=== PATIENT | male | born 1935 | race Caucasian/White ===

== ENCOUNTER 2020-07-21 18:33 | Inpatient (IN) | payer MEDICARE, BC ==
[~2020-07-21] VITALS: Ht 182.9 cm; Wt 117.9 kg
[2020-07-21 19:00] VITALS: BP 116/88
[2020-07-21] MEDS ORDERED: Z GUARD REMEDY PASTE 57 GM TUBE TOP PRN (19:45)
[2020-07-21] MEDS ORDERED: POLY119P2 PO (20:20)
[2020-07-21] MEDS ORDERED: HYDR-4384 PO (20:20)
[2020-07-21] MEDS ORDERED: ONDA4TAB5 PO (20:20)
[2020-07-21] MEDS ORDERED: FAMO-132 PO (20:20)
[2020-07-21] MEDS ORDERED: MORP1SYR2 IVP (20:20)
[2020-07-21] MEDS ORDERED: PRED2.5T PO (20:20)
[2020-07-21] MEDS ORDERED: MELA5TAB PO (20:20)
[2020-07-21] MEDS ORDERED: TRAM50TA2 PO (20:20)
[2020-07-21] MEDS ORDERED: DOXY-226 PO (20:20)
[2020-07-21] MEDS ORDERED: LEVO137T2 PO (20:20)
[2020-07-21] MEDS ORDERED: METO25TA6 PO (20:20)
[2020-07-21 20:35] VITALS: BP 150/87
[2020-07-21] MEDS ORDERED: ONDANSETRON HCL 4 MG TABLET PO SCH (20:45)
[2020-07-21] MEDS ORDERED: POLYETHYLENE GLYCOL 3350 238 GM POWDER PO PRN (20:45)
[2020-07-21] MEDS ORDERED: TRAMADOL HCL 50 MG TABLET PO SCH (20:45)
[2020-07-21] MEDS ORDERED: HYDROCODONE/APAP 5-325MG TABLET PO SCH (20:45)
[2020-07-21] MEDS: FAMOTIDINE 20 MG TABLET PO SCH (22:11)
[2020-07-21] MEDS ORDERED: TRAMADOL HCL 50 MG TABLET PO PRN (22:15)
[2020-07-21] MEDS: MORPHINE SULFATE 2 MG/1 ML DISP.SYRIN IV PRN (22:30)
[2020-07-22] MEDS: HYDROCODONE/APAP 5-325MG TABLET PO PRN ×2 (03:47→21:09)
--- NOTE | 2020-07-22 03:48 | NUR ---
received an 84 yr old male from [facility] with an admitting diagnosis of odontoid fracture S/P fall at home. AAOx2-3 forgetful at times. VSS. No acute distress noted. Lung CTA. Complained of neckpain and headache. Dr Hyatt aware of patient's admission. Medicated with Morphine 2mg IV alternating with 1 tab of [place] 5/325 given with slight relief. Voiding well in the urinal. Patient has #22 gauge on the right forearm. Skin intact except a laceration on the right forehead with sutures, almost healing with same scabs on it.Patient has fracture to C2 which she has to wear a C-collar for 6-8 weeks. Kept comfortable. Will monitor patient. Fall precaution maintained. Siderails up for safety.
[2020-07-22 04:35] VITALS: BP 148/88
[2020-07-22] MEDS: MORPHINE SULFATE 2 MG/1 ML DISP.SYRIN IV PRN ×2 (08:52→15:37)
[2020-07-22] MEDS: predniSONE 5 MG TABLET PO SCH (09:13)
[2020-07-22] MEDS: LEVOTHYROXINE SODIUM 137 MCG TABLET PO SCH (09:13)
[2020-07-22] MEDS: METOPROLOL TARTRATE 25 MG TABLET PO SCH ×2 (09:15→18:11)
[2020-07-22 12:00] VITALS: BP 149/62
[2020-07-22 17:18] VITALS: BP 138/73
[2020-07-22] MEDS: FAMOTIDINE 20 MG TABLET PO SCH (20:51)
[2020-07-22 21:10] VITALS: BP 138/98
--- NOTE | 2020-07-23 04:24 | NUR ---
No significant change or event throughout the shift. No acute distress noted. Medicated with [place] for pain. All needs attended to promptly. Safety measures maintained. Call light and personal items within reach. Continue to monitor.
[2020-07-23] MEDS: MORPHINE SULFATE 2 MG/1 ML DISP.SYRIN IV PRN (04:44)
[2020-07-23 05:53] VITALS: BP 155/93
[2020-07-23 08:59] VITALS: BP 147/102
[2020-07-23] MEDS: METOPROLOL TARTRATE 25 MG TABLET PO SCH ×2 (09:16→17:54)
[2020-07-23] MEDS: predniSONE 5 MG TABLET PO SCH (09:16)
[2020-07-23] MEDS: HYDROCODONE/APAP 5-325MG TABLET PO PRN ×2 (09:17→17:47)
[2020-07-23] MEDS: LEVOTHYROXINE SODIUM 137 MCG TABLET PO SCH (09:19)
[2020-07-23] MEDS: ERGOCALCIFEROL 50,000 UNIT CAPSULE PO SCH (12:04)
[2020-07-23] MEDS: NIFEdipine XL 30 MG TABSR PO SCH (12:05)
[2020-07-23] MEDS ORDERED: ONDANSETRON 4 MG/2 ML VIAL IV PRN (12:15)
[2020-07-23 16:10] VITALS: BP 126/66
[2020-07-23] MEDS: RIVAROXABAN 15 MG TABLET PO SCH (17:59)
[2020-07-23] MEDS: MIRALAX 17 GM POWD.PACK PO PRN (17:59)
--- NOTE | 2020-07-23 18:17 | NUR ---
PER DR. MADDOX, DISCONTINUED MORPHINE SULFATE.
--- NOTE | 2020-07-23 19:03 | NUR ---
patient in bed. AAOx4. No signs of respiratory distress noted. Tolerated Physical Therapy session well. Patient had taken a shower with Occupational Therapy today. Vital signs stable. Bed low in locked position. Will continue to monitor and follow plan of care.
[2020-07-23 20:33] VITALS: BP 109/80
[2020-07-23] MEDS: FAMOTIDINE 20 MG TABLET PO SCH (20:55)
[2020-07-24 04:30] VITALS: BP 132/93
[2020-07-24 06:33] LABS: BASOPHILS # (AUTO) 0.1 K/uL (0.0-8.0); BASOPHILS % (AUTO) 0.7 % (0.0-2.0); EOSINOPHILS # (AUTO) 0.4 K/uL (0.0-0.7); EOSINOPHILS % (AUTO) 3.7 % (0.0-7.0); HEMATOCRIT 41.1 % (36.7-47.1); HEMOGLOBIN 13.9 g/dL (12.5-16.3); LYMPHOCYTES # (AUTO) 2.2 K/uL (20.0-40.0); LYMPHOCYTES % (AUTO) 18.6 % (20.5-51.5); MEAN CORPUSCULAR HEMOGLOBIN 33.1 uug (23.8-33.4); MEAN CORPUSCULAR HGB CONC 34 g/dL (32.5-36.3); MEAN CORPUSCULAR VOLUME 98.3 fL (73.0-96.2); MONOCYTES # (AUTO) 0.9 K/uL (2.0-10.0); MONOCYTES % (AUTO) 7.9 % (0.0-11.0); NEUTROPHILS # (AUTO) 8.1 K/uL (1.8-8.9); NEUTROPHILS % (AUTO) 69.1 % (38.5-71.5); PLATELET COUNT (AUTO) 263 K/uL (152-348); RED BLOOD CELL COUNT(AUTO) 4.18 MIL/uL (4.06-5.63); WHITE BLOOD COUNT (AUTO) 11.8 K/uL (3.6-10.2)
[2020-07-24] MEDS: HYDROCODONE/APAP 5-325MG TABLET PO PRN ×2 (06:45→20:32)
[2020-07-24 07:03] LABS: CREATININE 1.3 mg/dL (0.6-1.3); MAGNESIUM 2.1 mg/dL (1.8-2.4); PHOSPHOROUS 3.4 mg/dL (2.5-4.9); POTASSIUM 3.4 mmol/L (3.5-5.1)
[2020-07-24 08:00] VITALS: BP 115/76
[2020-07-24] MEDS: predniSONE 5 MG TABLET PO SCH (09:02)
[2020-07-24] MEDS: LEVOTHYROXINE SODIUM 137 MCG TABLET PO SCH (09:04)
[2020-07-24] MEDS: METOPROLOL TARTRATE 25 MG TABLET PO SCH ×2 (09:07→17:49)
[2020-07-24] MEDS: NIFEdipine XL 30 MG TABSR PO SCH (09:07)
[2020-07-24] MEDS ORDERED: POTASSIUM CHLORIDE 20 MEQ TAB.PRT.SR PO ONE (11:00)
[2020-07-24] MEDS ORDERED: OXYCODONE HCL 5 MG TABLET PO ONE (11:50)
--- NOTE | 2020-07-24 12:02 | NUR ---
Patient complained of neck pain. PRN [place] still not due at this time. Informed Dr. Abbott and ordered Oxycodone 10mg PO x 1.
--- NOTE | 2020-07-24 15:08 | NUR ---
INDIVIDUALIZED PLAN OF CARE
[2020-07-24 16:36] VITALS: BP 124/82
[2020-07-24] MEDS: RIVAROXABAN 15 MG TABLET PO SCH (17:49)
[2020-07-24 20:00] VITALS: BP 117/78
[2020-07-24] MEDS: FAMOTIDINE 20 MG TABLET PO SCH (20:31)
[2020-07-25] MEDS: HYDROCODONE/APAP 5-325MG TABLET PO PRN ×2 (01:55→13:32)
[2020-07-25 04:00] VITALS: BP 125/85
--- NOTE | 2020-07-25 05:20 | NUR ---
Shift End Report: Vs stable. Medicated twice for pain as needed and ordered with help. No further complaint presented. Slept good. All needs attended and met. No significant event reported all night. Continue current rehab care as planned.
[2020-07-25] MEDS ORDERED: BISACODYL 10 MG SUPP.RECT RC ONE (08:15)
[2020-07-25 08:31] VITALS: BP 132/81
[2020-07-25] MEDS: OXYCODONE HCL 5 MG TABLET PO PRN ×2 (08:37→20:19)
[2020-07-25] MEDS: predniSONE 5 MG TABLET PO SCH (08:37)
[2020-07-25] MEDS: NIFEdipine XL 30 MG TABSR PO SCH (08:37)
[2020-07-25] MEDS: METOPROLOL TARTRATE 25 MG TABLET PO SCH ×2 (08:38→16:45)
[2020-07-25] MEDS: LEVOTHYROXINE SODIUM 137 MCG TABLET PO SCH (08:40)
--- NOTE | 2020-07-25 09:57 | NUR ---
patient complained about constipation, Ducolax administered as ordered, assisted to the bedside commode, effective, patient had large BM.
--- NOTE | 2020-07-25 14:43 | NUR ---
PATIENT COMPLAINED HE COULD NOT SLEEP LAST NIGHT, HE WOULD LIKE TO HAVE SOMETHING TO SLEEP AT NIGHT IF HE NEEDS, FABIENNE ORDERED MD RUBINA CONNELLY
--- NOTE | 2020-07-25 15:03 | NUR ---
INTERDISCIPLINARY TEAM CONFERENCE
[2020-07-25 15:45] VITALS: BP 115/88
[2020-07-25] MEDS: RIVAROXABAN 15 MG TABLET PO SCH (17:05)
--- NOTE | 2020-07-25 19:00 | NUR ---
no changes noted during shift, needs attended timely
[2020-07-25] MEDS: FAMOTIDINE 20 MG TABLET PO SCH (20:19)
[2020-07-25 20:36] VITALS: BP 108/73
[2020-07-25] MEDS: ZOLPIDEM 5 MG TABLET PO PRN (21:46)
--- NOTE | 2020-07-25 22:00 | NUR ---
Received patient lying in bed. AAOx4. No s/s of SOB noted. Complaint of neck pain 10/10. Administered OXYIR, effective yet still 5/10 pain. Vitals WNL. All due medication administered and tolerated well. Per pt request administered [place]. Safety measure maintained. Bed low in locked position. All needs attended to promptly. Will continue to monitor through the night.
[2020-07-26 04:00] VITALS: BP 128/72
[2020-07-26] MEDS: HYDROCODONE/APAP 5-325MG TABLET PO PRN (04:08)
--- NOTE | 2020-07-26 04:09 | NUR ---
Pt complaining of 8/10 neck pain, administered [place] PRN. will monitor for effectiveness.
[2020-07-26 08:00] VITALS: BP 103/75
[2020-07-26] MEDS: OXYCODONE HCL 5 MG TABLET PO PRN ×2 (09:33→20:16)
[2020-07-26] MEDS: LEVOTHYROXINE SODIUM 137 MCG TABLET PO SCH (09:33)
[2020-07-26] MEDS: NIFEdipine XL 30 MG TABSR PO SCH (09:34)
[2020-07-26] MEDS: predniSONE 5 MG TABLET PO SCH (09:35)
[2020-07-26] MEDS: METOPROLOL TARTRATE 25 MG TABLET PO SCH ×2 (09:35→17:51)
[2020-07-26] MEDS: FUROSEMIDE 20 MG TABLET PO SCH (09:35)
[2020-07-26] MEDS: ENSURE ENLIVE (VAN) 240 ML LIQUID PO SCH (09:36)
[2020-07-26] MEDS: CARBAMIDE PEROXIDE OTIC DROP 15 ML BOTTLE EACH EAR SCH ×2 (15:15→20:17)
[2020-07-26] MEDS ORDERED: CYCLOBENZAPRINE HCL 10 MG TABLET PO PRN (15:15)
[2020-07-26 16:00] VITALS: BP 115/70
[2020-07-26] MEDS: RIVAROXABAN 15 MG TABLET PO SCH (17:52)
--- NOTE | 2020-07-26 18:34 | NUR ---
NO CHANGES NOTED DURING SHIFT, DEBROX EYE DROPS, PHARMACY MADE AWARE TO DELIVER IT.
[2020-07-26 20:00] VITALS: BP 104/70
[2020-07-26] MEDS: FAMOTIDINE 20 MG TABLET PO SCH (20:16)
--- NOTE | 2020-07-26 22:15 | NUR ---
Received patient lying in bed. AAOx4. No s/s of SOB noted. Complaint of neck pain 04/14. Administered OXYIR PRN, effective yet still 6/10 pain. Vitals WNL. All due medication administered and tolerated well. Per pt request administered [place]. Safety measure maintained. Bed low in locked position. All needs attended to promptly. Will continue to monitor through the night.
[2020-07-26] MEDS: ZOLPIDEM 5 MG TABLET PO PRN (22:34)
[2020-07-27 04:00] VITALS: BP 107/65
[2020-07-27] MEDS: OXYCODONE HCL 5 MG TABLET PO PRN ×2 (06:46→19:55)
--- NOTE | 2020-07-27 06:46 | NUR ---
patient slept well throughout the night. no acute distress noted. Complaint of 9/10 pain, administered PRN OXYIR.
[2020-07-27 06:50] LABS: BASOPHILS # (AUTO) 0.1 K/uL (0.0-8.0); BASOPHILS % (AUTO) 0.6 % (0.0-2.0); EOSINOPHILS # (AUTO) 0.4 K/uL (0.0-0.7); EOSINOPHILS % (AUTO) 3.4 % (0.0-7.0); HEMATOCRIT 39.4 % (36.7-47.1); HEMOGLOBIN 13.1 g/dL (12.5-16.3); LYMPHOCYTES # (AUTO) 2.3 K/uL (20.0-40.0); MEAN CORPUSCULAR HEMOGLOBIN 32.8 uug (23.8-33.4); MEAN CORPUSCULAR HGB CONC 33 g/dL (32.5-36.3); MEAN CORPUSCULAR VOLUME 99.1 fL (73.0-96.2); MONOCYTES # (AUTO) 1.2 K/uL (2.0-10.0); MONOCYTES % (AUTO) 10.1 % (0.0-11.0); NEUTROPHILS # (AUTO) 8.2 K/uL (1.8-8.9); NEUTROPHILS % (AUTO) 66.9 % (38.5-71.5); PLATELET COUNT (AUTO) 294 K/uL (152-348); RED BLOOD CELL COUNT(AUTO) 3.98 MIL/uL (4.06-5.63); WHITE BLOOD COUNT (AUTO) 12.3 K/uL (3.6-10.2)
[2020-07-27 07:02] LABS: CREATININE 1.3 mg/dL (0.6-1.3); MAGNESIUM 2.1 mg/dL (1.8-2.4); PHOSPHOROUS 3.6 mg/dL (2.5-4.9); POTASSIUM 4.5 mmol/L (3.5-5.1)
[2020-07-27 10:35] VITALS: BP 112/80
[2020-07-27] MEDS: LEVOTHYROXINE SODIUM 137 MCG TABLET PO SCH (11:30)
[2020-07-27] MEDS: NIFEdipine XL 30 MG TABSR PO SCH (11:31)
[2020-07-27] MEDS: METOPROLOL TARTRATE 25 MG TABLET PO SCH ×2 (11:31→17:57)
[2020-07-27] MEDS: FUROSEMIDE 20 MG TABLET PO SCH (11:32)
[2020-07-27] MEDS: CARBAMIDE PEROXIDE OTIC DROP 15 ML BOTTLE EACH EAR SCH ×2 (11:50→19:55)
[2020-07-27] MEDS: predniSONE 5 MG TABLET PO SCH (11:50)
[2020-07-27] MEDS: ENSURE ENLIVE (VAN) 240 ML LIQUID PO SCH (11:58)
[2020-07-27] MEDS: HYDROCODONE/APAP 5-325MG TABLET PO PRN (12:08)
[2020-07-27 16:39] VITALS: BP 119/71
[2020-07-27] MEDS: RIVAROXABAN 15 MG TABLET PO SCH (17:57)
[2020-07-27] MEDS: FAMOTIDINE 20 MG TABLET PO SCH (19:55)
[2020-07-27 20:09] VITALS: BP 92/66
--- NOTE | 2020-07-27 20:30 | NUR ---
Received patient sitting up in bed. AAOx4. No s/s of SOB noted. no acute distress noted. Complaint of neck pain 03/15. Administered OXYIR PRN, will monitor for effectiveness. Vitals WNL. Skin intact. All due medication administered and tolerated well. Repositioned pt in comfortable position, B heels floated with pillow. Kept clean, dry and comfortable. Safety measure maintained. Bed low in locked position. All needs attended to promptly. Will continue to monitor through the night.
[2020-07-27 21:21] VITALS: BP 102/66
[2020-07-27] MEDS: ZOLPIDEM 5 MG TABLET PO PRN (22:35)
[2020-07-28 04:29] VITALS: BP 101/66
[2020-07-28] MEDS: HYDROCODONE/APAP 5-325MG TABLET PO PRN ×2 (05:50→16:40)
--- NOTE | 2020-07-28 06:03 | NUR ---
patient slept well throughout the night. no acute distress noted. Complaint of 7/10 pain, administered PRN Hydrocodone.
[2020-07-28] MEDS: FUROSEMIDE 20 MG TABLET PO SCH (08:40)
[2020-07-28] MEDS: OXYCODONE HCL 5 MG TABLET PO PRN ×2 (08:40→20:45)
[2020-07-28] MEDS: predniSONE 5 MG TABLET PO SCH (08:40)
[2020-07-28] MEDS: METOPROLOL TARTRATE 25 MG TABLET PO SCH ×2 (08:41→16:41)
[2020-07-28] MEDS: NIFEdipine XL 30 MG TABSR PO SCH (08:41)
[2020-07-28] MEDS: CARBAMIDE PEROXIDE OTIC DROP 15 ML BOTTLE EACH EAR SCH ×2 (08:42→20:45)
[2020-07-28] MEDS: ENSURE ENLIVE (VAN) 240 ML LIQUID PO SCH (08:42)
[2020-07-28] MEDS: LEVOTHYROXINE SODIUM 137 MCG TABLET PO SCH (08:52)
[2020-07-28 09:05] VITALS: BP 117/69
[2020-07-28 16:28] VITALS: BP 102/66
[2020-07-28] MEDS: RIVAROXABAN 15 MG TABLET PO SCH (16:41)
[2020-07-28 20:21] VITALS: BP 111/71
[2020-07-28] MEDS: FAMOTIDINE 20 MG TABLET PO SCH (20:45)
--- NOTE | 2020-07-28 21:00 | NUR ---
Patient sitting up in bed. AAOx4. No s/s of SOB noted. no acute distress noted. Complaint of neck pain 02/12. Administered OXYIR PRN, will monitor for effectiveness. Vitals WNL. All due medication administered and tolerated well. Repositioned pt in comfortable position, B heels floated with pillow. Kept clean, dry and comfortable. Safety measure maintained. Bed low in locked position. All needs attended to promptly. Will continue to monitor through the night.
[2020-07-28] MEDS: ZOLPIDEM 5 MG TABLET PO PRN (22:09)
[2020-07-29 04:18] VITALS: BP 120/45
[2020-07-29] MEDS: MIRALAX 17 GM POWD.PACK PO PRN (06:05)
[2020-07-29] MEDS: HYDROCODONE/APAP 5-325MG TABLET PO PRN ×3 (06:05→21:12)
--- NOTE | 2020-07-29 06:50 | NUR ---
administered [place] PRN, pt complaint of 6/10 pain in neck. Administered Miralx, no BM for 3 days. reposition pt in comfortable position. Attended to all needs. Safety measure maintained. Will endorse oncoming nurse accordingly.
--- NOTE | 2020-07-29 07:45 | NUR ---
Received pt in bed awake. A&O x4, able to verbalize needs. On RA, no SOB, no s/s of acute distress noted. VSS. Pt c/o of discomfort in neck. Pt stated wanted to wait for next PRN [place]. Belongings and call light within reach, reinforced usage, pt verbalized understanding. Bed low and in locked position, bed alarm on, safety measures and fall precautions in place. Will continue to monitor.
[2020-07-29] MEDS: ENSURE ENLIVE (VAN) 240 ML LIQUID PO SCH (09:31)
[2020-07-29] MEDS: CARBAMIDE PEROXIDE OTIC DROP 15 ML BOTTLE EACH EAR SCH ×2 (09:31→21:12)
[2020-07-29] MEDS: LEVOTHYROXINE SODIUM 137 MCG TABLET PO SCH (09:32)
[2020-07-29] MEDS: NIFEdipine XL 30 MG TABSR PO SCH (09:36)
[2020-07-29] MEDS: FUROSEMIDE 20 MG TABLET PO SCH (09:36)
[2020-07-29] MEDS: METOPROLOL TARTRATE 25 MG TABLET PO SCH ×2 (09:36→17:00)
[2020-07-29] MEDS: predniSONE 5 MG TABLET PO SCH (09:40)
--- NOTE | 2020-07-29 12:25 | NUR ---
Pt c/o of 7/10 pain in neck (using adult scale). PRN [place] administered per order. Will continue to monitor for effectiveness.
[2020-07-29 13:25] VITALS: BP 103/65
[2020-07-29 16:43] VITALS: BP 102/65
[2020-07-29] MEDS: RIVAROXABAN 15 MG TABLET PO SCH (17:05)
--- NOTE | 2020-07-29 17:11 | NUR ---
1700 Metoprolol held. Pt BP 107/64, HR 67. Will continue to monitor.
--- NOTE | 2020-07-29 19:30 | NUR ---
EOSS: Assisted pt to bed with FWW. A&Ox4, able to make needs known throughout shift. No SOB, no s/s of acute distress noted. Patient worked with PT today, tolerated well. Due medication administered per order with no adverse effects. Care given as ordered, needs met promptly. Bed low and in locked position, bed alarm on, safety measures and fall precautions in place. Belongings and call light within reach. Will endorse care to date night sitter.
[2020-07-29 20:00] VITALS: BP 102/70
--- NOTE | 2020-07-29 20:45 | NUR ---
Patient is in bed, not in any signs of distress. Alert and oriented, denies any c/o pain at this time. Per pt he has not had any BM since 3 days ago. Prune juice given and offered to get an order for laxative but per patient "not this time, I want to get some rest tonight." Needs attended and met. Patient was positioned for comfort. Call light placed within reach. Will continue to monitor.
[2020-07-29 21:08] VITALS: BP 102/70
[2020-07-29] MEDS: ZOLPIDEM 5 MG TABLET PO PRN (21:11)
[2020-07-29] MEDS: FAMOTIDINE 20 MG TABLET PO SCH (21:11)
[2020-07-29] MEDS ORDERED: GUAIFENESIN/CODEINE 5 ML LIQUID UDC PO PRN (23:30)
[2020-07-30] MEDS: OXYCODONE HCL 5 MG TABLET PO PRN ×2 (03:49→15:13)
[2020-07-30 05:08] VITALS: BP 93/58
--- NOTE | 2020-07-30 06:43 | NUR ---
Patient slept well. Administered pain medicine at 0330 with relief. Not in any respiratory distress. Needs attended and mety. Positioned for comfort. Will continue to monitor.
[2020-07-30 06:45] LABS: BASOPHILS # (AUTO) 0.1 K/uL (0.0-8.0); BASOPHILS % (AUTO) 0.9 % (0.0-2.0); EOSINOPHILS # (AUTO) 0.3 K/uL (0.0-0.7); HEMATOCRIT 38.8 % (36.7-47.1); HEMOGLOBIN 13.4 g/dL (12.5-16.3); LYMPHOCYTES # (AUTO) 2.2 K/uL (20.0-40.0); LYMPHOCYTES % (AUTO) 20.5 % (20.5-51.5); MEAN CORPUSCULAR HEMOGLOBIN 33.7 uug (23.8-33.4); MEAN CORPUSCULAR HGB CONC 34 g/dL (32.5-36.3); MEAN CORPUSCULAR VOLUME 97.9 fL (73.0-96.2); MONOCYTES # (AUTO) 1.3 K/uL (2.0-10.0); MONOCYTES % (AUTO) 11.6 % (0.0-11.0); NEUTROPHILS # (AUTO) 6.9 K/uL (1.8-8.9); PLATELET COUNT (AUTO) 312 K/uL (152-348); RED BLOOD CELL COUNT(AUTO) 3.97 MIL/uL (4.06-5.63); WHITE BLOOD COUNT (AUTO) 10.8 K/uL (3.6-10.2)
[2020-07-30] MEDS: MIRALAX 17 GM POWD.PACK PO PRN (06:48)
[2020-07-30 07:00] LABS: CREATININE 1.3 mg/dL (0.6-1.3); PHOSPHOROUS 3.6 mg/dL (2.5-4.9); POTASSIUM 4.1 mmol/L (3.5-5.1)
[2020-07-30 07:30] VITALS: BP 102/62
--- NOTE | 2020-07-30 08:00 | NUR ---
Patient is in bed. Alert and oriented. No signs and symptoms of respiratory distress. Positioned for comfort. Call light within reach. Will continue to monitor.
[2020-07-30] MEDS: FUROSEMIDE 20 MG TABLET PO SCH (08:33)
[2020-07-30] MEDS: predniSONE 5 MG TABLET PO SCH (08:34)
[2020-07-30] MEDS: LEVOTHYROXINE SODIUM 137 MCG TABLET PO SCH (08:36)
[2020-07-30] MEDS: NIFEdipine XL 30 MG TABSR PO SCH (09:00)
[2020-07-30] MEDS: METOPROLOL TARTRATE 25 MG TABLET PO SCH ×2 (09:00→17:51)
--- NOTE | 2020-07-30 09:10 | NUR ---
0900 Metropolol and Nifedipine held. Pt BP 102/62. HR 96. Will continue to monitor.
[2020-07-30] MEDS: ENSURE ENLIVE (VAN) 240 ML LIQUID PO SCH (09:32)
[2020-07-30] MEDS: HYDROCODONE/APAP 5-325MG TABLET PO PRN ×2 (09:33→20:37)
[2020-07-30] MEDS: CARBAMIDE PEROXIDE OTIC DROP 15 ML BOTTLE EACH EAR SCH ×2 (09:50→20:37)
[2020-07-30] MEDS: ERGOCALCIFEROL 50,000 UNIT CAPSULE PO SCH (11:16)
--- NOTE | 2020-07-30 14:30 | NUR ---
DR MELISSA CESPEDES HERE TO SEE PATIENT AWARE OF BLOOD PRESSURE BEING LOW AND METOPROLOL HELD THIS MORNING WITH ORDERS AND PARAMETERS.AND NOTED
[2020-07-30 15:56] VITALS: BP 117/82
--- NOTE | 2020-07-30 16:19 | NUR ---
4 STITCHES REMOVED FROM HIS FOREHEAD PER DR CESPEDES
--- NOTE | 2020-07-30 16:20 | NUR ---
STERI STRIPS WAS APPLIED TO HIS FOREHEAD PER DR CESPEDES.
[2020-07-30] MEDS: RIVAROXABAN 15 MG TABLET PO SCH (17:56)
--- NOTE | 2020-07-30 18:00 | NUR ---
CONTINUE WITH REHAB ORDERED SEATED ON THE CHAIR IN HIS ROOM CONVERSING WITH HIS FAMILY ON THE PHONE REQUESTED FOR PAIN MEDICATIONS AND GIVEN ORDERED AND HELPFUL WILL CONTINUE TO OBSERVE.
[2020-07-30 20:09] VITALS: BP_SYST 102; BP_DIAS 73; BP_DIAS 75
[2020-07-30] MEDS: FAMOTIDINE 20 MG TABLET PO SCH (20:37)
[2020-07-30] MEDS: ZOLPIDEM 5 MG TABLET PO PRN (22:13)
[2020-07-31 04:15] VITALS: BP 108/65
--- NOTE | 2020-07-31 06:36 | NUR ---
Shift End Report: Medicated once for pain with help. Slept well with Ambien. No further complaint presented. No significant event reported all night. Continue current plan of care.
[2020-07-31] MEDS ORDERED: BISACODYL 10 MG SUPP.RECT RC ONE (08:00)
[2020-07-31 08:25] VITALS: BP 125/75
[2020-07-31] MEDS: CARBAMIDE PEROXIDE OTIC DROP 15 ML BOTTLE EACH EAR SCH ×2 (08:30→20:33)
[2020-07-31] MEDS: ENSURE ENLIVE (VAN) 240 ML LIQUID PO SCH (08:31)
[2020-07-31] MEDS: FUROSEMIDE 20 MG TABLET PO SCH (08:32)
[2020-07-31] MEDS: predniSONE 5 MG TABLET PO SCH (08:32)
[2020-07-31] MEDS: METOPROLOL TARTRATE 25 MG TABLET PO SCH ×2 (08:32→16:43)
[2020-07-31] MEDS: NIFEdipine XL 30 MG TABSR PO SCH (08:33)
[2020-07-31] MEDS: LEVOTHYROXINE SODIUM 137 MCG TABLET PO SCH (08:33)
[2020-07-31] MEDS: OXYCODONE HCL 5 MG TABLET PO PRN ×2 (09:15→20:32)
[2020-07-31] MEDS: MIRALAX 17 GM POWD.PACK PO PRN (14:21)
[2020-07-31 16:00] VITALS: BP 109/71
[2020-07-31] MEDS ORDERED: MAGNESIUM HYDROXIDE 30 ML LIQUID UDC PO ONE (16:30)
[2020-07-31] MEDS: HYDROCODONE/APAP 5-325MG TABLET PO PRN (16:42)
[2020-07-31] MEDS: RIVAROXABAN 15 MG TABLET PO SCH (17:49)
--- NOTE | 2020-07-31 17:55 | NUR ---
no changes noted during shift, participated with PT, OT services well, complained about constipation, laxative administered as ordered, continue to monitor for effectiveness.
[2020-07-31 20:23] VITALS: BP 101/74
[2020-07-31] MEDS: DOCUSATE SODIUM 100 MG CAPSULE PO SCH (20:30)
[2020-07-31] MEDS: FAMOTIDINE 20 MG TABLET PO SCH (20:30)
[2020-07-31] MEDS: ZOLPIDEM 5 MG TABLET PO PRN (23:26)
--- NOTE | 2020-08-01 00:43 | NUR ---
Awake upon initial rounds. AAOx4 Needs attended. VSS Kept comfortable. All due meds given without difficulty. [place] collar at all times. Pain meds given as needed. Relief noted. Will mmonitor patient.
[2020-08-01 04:45] VITALS: BP 127/70
[2020-08-01] MEDS: FUROSEMIDE 20 MG TABLET PO SCH (08:22)
[2020-08-01] MEDS: predniSONE 5 MG TABLET PO SCH (08:22)
[2020-08-01] MEDS: ENSURE ENLIVE (VAN) 240 ML LIQUID PO SCH (08:22)
[2020-08-01] MEDS: LEVOTHYROXINE SODIUM 137 MCG TABLET PO SCH (08:23)
[2020-08-01] MEDS: METOPROLOL TARTRATE 25 MG TABLET PO SCH ×2 (08:24→16:03)
[2020-08-01] MEDS: NIFEdipine XL 30 MG TABSR PO SCH (08:24)
[2020-08-01] MEDS: CARBAMIDE PEROXIDE OTIC DROP 15 ML BOTTLE EACH EAR SCH ×2 (08:25→20:26)
[2020-08-01] MEDS: OXYCODONE HCL 5 MG TABLET PO PRN ×2 (08:30→20:27)
[2020-08-01 08:40] VITALS: BP 100/77
[2020-08-01] MEDS: HYDROCODONE/APAP 5-325MG TABLET PO PRN (14:35)
--- NOTE | 2020-08-01 14:46 | NUR ---
INTERDISCIPLINARY TEAM CONFERENCE
[2020-08-01 15:14] VITALS: BP 114/70
[2020-08-01] MEDS: RIVAROXABAN 15 MG TABLET PO SCH (17:06)
[2020-08-01] MEDS: DOCUSATE SODIUM 100 MG CAPSULE PO SCH (20:27)
[2020-08-01] MEDS: FAMOTIDINE 20 MG TABLET PO SCH (20:27)
[2020-08-01 20:32] VITALS: BP 110/75
[2020-08-01] MEDS: MIRALAX 17 GM POWD.PACK PO PRN (21:23)
[2020-08-01] MEDS: ZOLPIDEM 5 MG TABLET PO PRN (23:05)
--- NOTE | 2020-08-01 23:30 | NUR ---
Received patient lying in bed. AAOx4. No s/s of SOB noted. Complaint of neck pain /. Administered OXYIR PRN, effective yet still 6/10 pain. Vitals WNL. All due medication administered and tolerated well. Per pt request administered Ambien, effective patient is sleeping comfortably. Safety measure maintained. Bed low in locked position. All needs attended to promptly. Will continue to monitor through the night.
[2020-08-02 04:00] VITALS: BP 120/82
[2020-08-02] MEDS: OXYCODONE HCL 5 MG TABLET PO PRN ×2 (07:50→20:21)
[2020-08-02] MEDS: FUROSEMIDE 20 MG TABLET PO SCH (07:51)
[2020-08-02] MEDS: predniSONE 5 MG TABLET PO SCH (07:51)
[2020-08-02] MEDS: LEVOTHYROXINE SODIUM 137 MCG TABLET PO SCH (07:51)
[2020-08-02] MEDS: CARBAMIDE PEROXIDE OTIC DROP 15 ML BOTTLE EACH EAR SCH ×2 (07:51→20:21)
[2020-08-02] MEDS: ENSURE ENLIVE (VAN) 240 ML LIQUID PO SCH (07:51)
[2020-08-02 08:00] VITALS: BP 113/76
[2020-08-02] MEDS: METOPROLOL TARTRATE 25 MG TABLET PO SCH ×2 (08:34→16:43)
[2020-08-02] MEDS: NIFEdipine XL 30 MG TABSR PO SCH (08:35)
[2020-08-02] MEDS: HYDROCODONE/APAP 5-325MG TABLET PO PRN (15:03)
[2020-08-02 15:28] VITALS: BP 113/77
[2020-08-02] MEDS: RIVAROXABAN 15 MG TABLET PO SCH (17:14)
[2020-08-02] MEDS ORDERED: MAGNESIUM HYDROXIDE 30 ML LIQUID UDC PO PRN (20:00)
[2020-08-02] MEDS: FAMOTIDINE 20 MG TABLET PO SCH (20:21)
[2020-08-02] MEDS: DOCUSATE SODIUM 100 MG CAPSULE PO SCH (20:21)
[2020-08-02 20:38] VITALS: BP 104/72
[2020-08-02] MEDS: ZOLPIDEM 5 MG TABLET PO PRN (22:19)
[2020-08-03] MEDS: HYDROCODONE/APAP 5-325MG TABLET PO PRN ×2 (01:55→16:14)
[2020-08-03 04:52] VITALS: BP 108/67
--- NOTE | 2020-08-03 06:46 | NUR ---
C/O of neck pain 8/10 @beginning of shift, Administered OXYIR PRN, effective yet still 5/10 pain. Vitals WNL. All due medication administered and tolerated well. Per pt request administered Ambien, effective patient is sleeping comfortably. C/O 7/10 pain in the middle of the night, administered [place]. No BM, administered MOM, and prune juice. Safety measure maintained. Bed low in locked position. Repositioned multiple times for comfort. All needs attended to promptly. Will continue to monitor through the night.
[2020-08-03 07:45] VITALS: BP 91/66
[2020-08-03] MEDS: OXYCODONE HCL 5 MG TABLET PO PRN ×2 (08:20→20:35)
[2020-08-03] MEDS: METOPROLOL TARTRATE 25 MG TABLET PO SCH ×2 (08:20→16:14)
[2020-08-03] MEDS: predniSONE 5 MG TABLET PO SCH (08:20)
[2020-08-03] MEDS: NIFEdipine XL 30 MG TABSR PO SCH (08:20)
[2020-08-03] MEDS: LEVOTHYROXINE SODIUM 137 MCG TABLET PO SCH (08:20)
[2020-08-03] MEDS: FUROSEMIDE 20 MG TABLET PO SCH (08:20)
[2020-08-03] MEDS: ENSURE ENLIVE (VAN) 240 ML LIQUID PO SCH (08:37)
[2020-08-03] MEDS: CARBAMIDE PEROXIDE OTIC DROP 15 ML BOTTLE EACH EAR SCH ×2 (08:37→20:35)
[2020-08-03] MEDS: MIRALAX 17 GM POWD.PACK PO PRN (13:34)
[2020-08-03 15:36] VITALS: BP 119/71
[2020-08-03] MEDS: RIVAROXABAN 15 MG TABLET PO SCH (17:01)
--- NOTE | 2020-08-03 20:05 | NUR ---
Awake, watching TV. Denies any pain/discomforts at this time. Safety measures and fall prevention maintained.
[2020-08-03] MEDS: DOCUSATE SODIUM 100 MG CAPSULE PO SCH (20:35)
[2020-08-03] MEDS: FAMOTIDINE 20 MG TABLET PO SCH (20:35)
[2020-08-03 20:43] VITALS: BP 107/74
[2020-08-04] MEDS: ZOLPIDEM 5 MG TABLET PO PRN (00:17)
[2020-08-04 04:00] VITALS: BP 120/66
[2020-08-04] MEDS: FUROSEMIDE 20 MG TABLET PO SCH (08:09)
[2020-08-04] MEDS: CARBAMIDE PEROXIDE OTIC DROP 15 ML BOTTLE EACH EAR SCH (08:09)
[2020-08-04] MEDS: LEVOTHYROXINE SODIUM 137 MCG TABLET PO SCH (08:10)
[2020-08-04] MEDS: NIFEdipine XL 30 MG TABSR PO SCH (08:10)
[2020-08-04] MEDS: METOPROLOL TARTRATE 25 MG TABLET PO SCH (08:10)
[2020-08-04] MEDS: predniSONE 5 MG TABLET PO SCH (08:10)
[2020-08-04 08:12] VITALS: BP 102/75
[2020-08-04] MEDS: ENSURE ENLIVE (VAN) 240 ML LIQUID PO SCH (08:32)
[2020-08-04] MEDS: OXYCODONE HCL 5 MG TABLET PO PRN (09:10)
--- NOTE | 2020-08-04 14:35 | NUR ---
DC ORDERS RECEIVED NOTED AND CARRIED OUT.DC INSTRUCTION AND EDUCATION GIVEN TO THE PT .PT LEFT THE FACILITY VIA PRIVATE CAR IN STABLE CONDITION
== END 2020-08-04 14:39 | disposition home health service (06) | DRG 559 ==
PROVIDERS: ADMIT Physical Medicine & Rehabilitation Pain Medicine; ATTEND Physical Medicine & Rehabilitation Pain Medicine
DX: S12.110D Anterior displaced Type II dens fracture, subsequent encounter for fracture with routine healing (principal); J18.9 Pneumonia, unspecified organism; J96.01 Acute respiratory failure with hypoxia; N17.9 Acute kidney failure, unspecified; S01.81XD Laceration without foreign body of other part of head, subsequent encounter; W10.9XXD Fall (on) (from) unspecified stairs and steps, subsequent encounter; I48.91 Unspecified atrial fibrillation; E03.9 Hypothyroidism, unspecified; I10 Essential (primary) hypertension; E86.0 Dehydration; G89.29 Other chronic pain; I12.9 Hypertensive chronic kidney disease with stage 1 through stage 4 chronic kidney disease, or unspecified chronic kidney disease; E66.9 Obesity, unspecified; N18.9 Chronic kidney disease, unspecified; E87.6 Hypokalemia; Z79.01 Long term (current) use of anticoagulants; Z82.49 Family history of ischemic heart disease and other diseases of the circulatory system; L40.9 Psoriasis, unspecified; M19.90 Unspecified osteoarthritis, unspecified site; Z88.2 Allergy status to sulfonamides
CPT/HCPCS: 36415; 83735; 84100; 85025; A4663; J2270; J2405; J7512